=== PATIENT | male | born 1965 | race Caucasian/White ===

== ENCOUNTER 2021-04-04 12:44 | Emergency (ER) | payer OTHER ==
[~2021-04-04] VITALS: Ht 175.3 cm; Wt 59.0 kg
[2021-04-04 12:46] VITALS: BP 129/88
== END 2021-04-04 14:17 | disposition home or self-care (01) ==
LOC: ER 12:44
DX: S49.91XA Unspecified injury of right shoulder and upper arm, initial encounter (principal); F17.200 Nicotine dependence, unspecified, uncomplicated; Z98.890 Other specified postprocedural states; X58.XXXA Exposure to other specified factors, initial encounter; Y93.89 Activity, other specified; Y92.89 Other specified places as the place of occurrence of the external cause; Y99.8 Other external cause status